=== PATIENT | female | born 1955 | race Caucasian/White ===

== ENCOUNTER → 2017-07-07 | Day surgery (SDC) | payer MEDICARE ==
[~2017-07-07] MED LIST: ABILIFY2 MG PO; ACYCLOVIR200 MG PO; ALENDRONATE SOD70 MG PO; AMBIEN10 MG PO; BIOTIN2500 MCG; BIOTIN300 MCG PO; CALTRATE 600600 MG PO; CELEBREX200 MG PO; CITRACAL-VIT D1 EAC2 PO; DEXILANT60 MG PO; EFFEXOR XR75 MG PO; FENTANYL CITRATE/PF 100MCG/2 ML INJ ONE; FLAXSEED-FISH-400 MG PO; LISINOPRIL-HCT1 EAC1 PO; MELOXICAM7.5 MG PO; METFORMIN HCL500 MG PO; MIDAZOLAM HCL 2 MG/2 ML VIAL ONE; MULTI-VITAMIN1 EACH PO; OMEPRAZOLE40 MG PO; PROPOFOL IV EMULSION 10 MG/ML 50 ML VIAL ONE; SIMVASTATIN20 MG PO; TART CHERRY CA1 EACH PO; ULTRAM 50MG50 MG PO; VENLAFAXINE HCL75 MG PO; VITAMIN B12-FO1 EACH PO; VITAMIN E400 UNI1 PO; ZESTRIL2.5 MG PO; [UNRECOGNIZED DRUG - OTHER]; [UNRECOGNIZED DRUG - OTHER] PO
== END | disposition home or self-care (01) ==
LOC: OR 05:51
PROVIDERS: ATTEND Internal Medicine Gastroenterology
DX: K29.70 Gastritis, unspecified, without bleeding (principal); K21.9 Gastro-esophageal reflux disease without esophagitis; E11.9 Type 2 diabetes mellitus without complications; G47.33 Obstructive sleep apnea (adult) (pediatric); I10 Essential (primary) hypertension; M19.90 Unspecified osteoarthritis, unspecified site; E66.01 Morbid (severe) obesity due to excess calories; F31.9 Bipolar disorder, unspecified; Z68.43 Body mass index [BMI] 50.0-59.9, adult; Z83.71 Family history of colonic polyps
CPT/HCPCS: 36415; 43239; 82948; 88305; 88312; J2250